=== PATIENT | female | born 1945 | race Caucasian/White ===

== ENCOUNTER 2023-05-08 20:02 | Emergency (ER) | payer MEDICARE, BC ==
[2023-05-08] MEDS ORDERED: Sodium Chloride 0.9% 10 ML Syringe FLUSH PRN (20:13)
[2023-05-08] MEDS: Ondansetron 4 MG/2 ML SDV IVPUSH ONE (20:21)
[2023-05-08] MEDS: Ketorolac 30 MG/ML SDV IVPUSH ONE (20:24)
[2023-05-08] MEDS: Sodium Chloride 0.9% 1,000 ML IV ONE (20:24)
[2023-05-08] MEDS: diphenhydrAMINE 50 MG/ML SDV IVPUSH ONE (20:27)
[2023-05-08] MEDS: LORazepam 2 MG/ML SDV IVPUSH ONE (21:02)
[2023-05-08] MEDS ORDERED: Morphine 2 MG/ML SYRINGE IVPUSH ONE (21:19)
[2023-05-08] MEDS: Morphine 4 MG/ML Syringe IVPUSH ONE (21:28)
[2023-05-08] MEDS: Ondansetron 4 MG Tab.DIS PO ONE (21:47)
[2023-05-08 22:19] VITALS: BP 160/85; PULSE 90
== END 2023-05-08 22:00 | disposition home or self-care (01) ==
LOC: KA.ED 20:02
DX: I10 Essential (primary) hypertension (principal); R11.2 Nausea with vomiting, unspecified; I25.10 Atherosclerotic heart disease of native coronary artery without angina pectoris; E78.00 Pure hypercholesterolemia, unspecified; K21.9 Gastro-esophageal reflux disease without esophagitis; Z79.82 Long term (current) use of aspirin; Z79.899 Other long term (current) drug therapy
CPT/HCPCS: 96361; 96374; 96375; 99283-25; A9270-GY; J1200; J1885; J2060; J2270; J2405; J7030